=== PATIENT | male | born 1945 | race Caucasian/White ===

== ENCOUNTER 2017-03-20 11:20 | Emergency (ER) | payer MEDICARE ==
[~2017-03-20] VITALS: Ht 167.6 cm; Wt 104.0 kg
[~2017-03-20 11:20] MED LIST: ALBU18HF INH; ASPI-13 PO; BACL20TA PO; CYCL-259 PO; HYDR-3245 PO; LISI-167 PO; METO-264 PO; NAPR500T4 PO; OXYC-302 PO; RIVA15TA PO; RIVA20TA PO; SIMV20TA3 PO; TERA5CAP3 PO
[2017-03-20 13:19] LABS: BASOPHILS # (AUTO) 0.09 x10^3/uL (0-0.1); BASOPHILS % (AUTO) 1 % (0-1); EOSINOPHILS # (AUTO) 0.25 x10^3/uL (0-0.4); EOSINOPHILS % (AUTO) 3 % (1-7); LYMPHOCYTES # (AUTO) 2.19 x10^3/uL (1-3.4); LYMPHOCYTES % (AUTO) 25 % (22-44); MD NO; MEAN CORPUSCULAR HEMOGLOBIN 30.4 pg (27.5-34.5); MEAN CORPUSCULAR HGB CONC 33.4 g/dL (33.2-36.2); MEAN CORPUSCULAR VOLUME 91.1 fL (81-97); MEAN PLATELET VOLUME 8.2 fL (7.4-10.4); MONOCYTES # (AUTO) 0.81 x10^3/uL (0.2-0.8); MONOCYTES % (AUTO) 9 % (2-9); NEUTROPHILS # (AUTO) 5.28 x10^3/uL (1.8-6.8); NEUTROPHILS % (AUTO) 61 % (42-75); PLATELET COUNT 141 x10^3/uL (130-400); RED BLOOD COUNT 4.84 x10^6/uL (4.38-5.82); RED CELL DISTRIBUTION WIDTH 14.2 % (9.4-14.8)
[2017-03-20 13:30] LABS: ANION GAP 8 mmol/L (5-15); CALCIUM 9.4 mg/dL (8.5-10.1); CHLORIDE 104 mmol/L (98-107); CREATININE 1.41 mg/dL (0.7-1.3)
[2017-03-20 13:34] LABS: TROPONIN I < 0.015 ng/mL (0.000-0.045)
[2017-03-20 16:04] VITALS: BP 127/66
== END 2017-03-20 16:35 | disposition home or self-care (01) ==
LOC: ED 16:28
DX: I82.412 Acute embolism and thrombosis of left femoral vein (principal); I10 Essential (primary) hypertension; Z98.890 Other specified postprocedural states; Z86.718 Personal history of other venous thrombosis and embolism
CPT/HCPCS: 36415; 71045; 80048; 82040; 84484; 85025; 93005; 99285

== ENCOUNTER 2018-09-25 07:29 | Outpatient (CLI) | payer MEDICARE ==
[~2018-09-25 07:29] MED LIST changes: +NAPR-685 PO; -NAPR500T4 PO
[2018-09-25] MEDS ORDERED: ROSU40TA PO (08:16)
[2018-09-25] MEDS ORDERED: LOSA50TA14 PO (08:16)
[2018-09-25] MEDS ORDERED: UBID200C35 PO (08:16)
[2018-09-25] MEDS ORDERED: RIVA20TA PO (08:16)
[2018-09-25] MEDS ORDERED: LINA5TAB PO (08:16)
[2018-09-25] MEDS ORDERED: FLUT1AER INH (08:41)
[2018-09-25] MEDS ORDERED: FLUT12AE INH (08:41)
[2018-09-25 08:57] LABS: BASOPHILS # (AUTO) 0.02 x10^3/uL (0-0.1); BASOPHILS % (AUTO) 0 % (0-1); EOSINOPHILS # (AUTO) 0.07 x10^3/uL (0-0.4); EOSINOPHILS % (AUTO) 1 % (1-7); LYMPHOCYTES # (AUTO) 1.47 x10^3/uL (1-3.4); LYMPHOCYTES % (AUTO) 21 % (22-44); MD NO; MEAN CORPUSCULAR HEMOGLOBIN 31.6 pg (27.5-34.5); MEAN CORPUSCULAR HGB CONC 33.1 g/dL (33.2-36.2); MEAN CORPUSCULAR VOLUME 95.3 fL (81-97); MEAN PLATELET VOLUME 7.9 fL (7.4-10.4); MONOCYTES # (AUTO) 0.76 x10^3/uL (0.2-0.8); MONOCYTES % (AUTO) 11 % (2-9); NEUTROPHILS # (AUTO) 4.68 x10^3/uL (1.8-6.8); NEUTROPHILS % (AUTO) 67 % (42-75); PLATELET COUNT 151 x10^3/uL (130-400); RED BLOOD COUNT 4.46 x10^6/uL (4.38-5.82); RED CELL DISTRIBUTION WIDTH 15.7 % (9.4-14.8)
[2018-09-25 09:03] LABS: INTERNATIONAL NORMALIZED RATIO 1.28 (0.93-1.1); PROTHROMBIN TIME 13.3 Seconds (9.6-11.5)
[2018-09-25 09:05] LABS: ALANINE AMINOTRANSFERASE 32 U/L (12-78); ALBUMIN 3.9 g/dL (3.4-5.0); ANION GAP 4 mmol/L (5-15); CALCIUM 9.1 mg/dL (8.5-10.1); CHLORIDE 110 mmol/L (98-107); CREATININE 1.23 mg/dL (0.7-1.3)
[2018-09-25 09:07] LABS: ALKALINE PHOSPHATASE 40 U/L (45-117); TOTAL PROTEIN 7.4 g/dL (6.4-8.2)
[2018-09-25 09:07] LABS: MICROSCOPIC AUTO
[2018-09-25 09:13] LABS: CULTURE INDICATED? YES
== END 2018-09-25 23:59 | disposition home or self-care (01) ==
LOC: STAR 07:29
PROVIDERS: ATTEND Orthopaedic Surgery
DX: Z01.818 Encounter for other preprocedural examination (principal); M48.061 Spinal stenosis, lumbar region without neurogenic claudication; R79.1 Abnormal coagulation profile; R82.998 Other abnormal findings in urine
CPT/HCPCS: 36415; 71046; 80053; 81001; 85025; 85610; 85730; 87086; 87186; 93005

== ENCOUNTER 2019-01-01 05:41 | Inpatient (IN) | payer MEDICARE ==
[~2019-01-01] VITALS: Ht 167.6 cm; Wt 111.0 kg
[~2019-01-01 05:41] MED LIST changes: +FLUT12AE INH; +FLUT1AER INH; +LINA5TAB PO; +LOSA50TA14 PO; +ROSU40TA PO; +UBID200C35 PO
[2019-01-01] MEDS ORDERED: LACTATED RINGERS 1,000 ML IV SCH (06:04)
[2019-01-01 06:32] LABS: MICROSCOPIC NOT IND
[2019-01-01 06:34] LABS: CULTURE INDICATED? NO
[2019-01-01] MEDS ORDERED: BUPIVACAINE/PF 0.25% ONE (06:41)
[2019-01-01] MEDS ORDERED: LIDOCAINE/PF 0.5% ,50ML ONE (06:41)
[2019-01-01] MEDS ORDERED: TOBRAMYCIN SULFATE 1.2 GM IMP ONE (06:42)
[2019-01-01] MEDS ORDERED: THROMBIN 5,000 UNIT VIAL TP ONE (06:42)
[2019-01-01] MEDS ORDERED: VANCOMYCIN 1,000 MG ONE ×2 (06:42→09:19)
[2019-01-01] MEDS ORDERED: EPINEPHRINE 1 MG/ML, 1ML ONE (06:42)
[2019-01-01] MEDS ORDERED: MIDAZOLAM 1 MG/ML, 2ML ONE (07:06)
[2019-01-01] MEDS ORDERED: FENTANYL PF 250 MCG/5ML ONE (07:06)
[2019-01-01] MEDS ORDERED: PROPOFOL 10 MG/ML, 20ML ONE (07:40)
[2019-01-01] MEDS ORDERED: SUCCINYLCHOLINE 20 MG/ML, 10ML ONE (07:40)
[2019-01-01] MEDS ORDERED: CEFAZOLIN 1,000 MG ONE (07:40)
[2019-01-01] MEDS ORDERED: ROCURONIUM 10 MG/ML,10ML ONE (07:40)
[2019-01-01] MEDS ORDERED: ONDANSETRON 2MG/ML, 2ML ONE (07:40)
[2019-01-01] MEDS ORDERED: ALBUTEROL SULFATE 2.5 MG/3 ML NPPB PRN (08:30)
[2019-01-01] MEDS ORDERED: KETOROLAC 30 MG/1 ML IV PRN (08:30)
[2019-01-01] MEDS ORDERED: MEPERIDINE/PF 25MG/0.5ML IVPush PRN (08:30)
[2019-01-01] MEDS ORDERED: hydrALAzine 20 MG/ML, 1ML IV PRN (08:30)
[2019-01-01] MEDS ORDERED: METOCLOPRAMIDE 5 MG/ML, 2ML IV PRN (08:30)
[2019-01-01] MEDS ORDERED: LABETALOL 5MG/ML, 20ML IV PRN (08:30)
[2019-01-01] MEDS ORDERED: ONDANSETRON 2MG/ML, 2ML IVPush PRN (08:30)
[2019-01-01] MEDS ORDERED: PROMETHAZINE 25 MG/ML, 1ML IV PRN (08:30)
[2019-01-01] MEDS ORDERED: FENTANYL PF 100 MCG/2ML IV PRN (08:30)
[2019-01-01] MEDS ORDERED: OXYcodone 5 MG/5 ML ORAL.SOL UDC PO PRN ×2 (08:30→10:30)
[2019-01-01] MEDS ORDERED: HYDROmorphone 1 MG/ML, 1ML INJ IV PRN ×2 (08:30→10:30)
[2019-01-01] MEDS ORDERED: OXYcodone 5 MG/5 ML ORAL.SOL UDC ONE (10:06)
[2019-01-01] MEDS ORDERED: FENTANYL PF 100 MCG/2ML ONE (10:06)
[2019-01-01] MEDS ORDERED: HYDROmorphone 1 MG/ML, 1ML VIAL ONE (10:06)
[2019-01-01] MEDS ORDERED: MAGNESIUM HYDROXIDE 8%, 30ML UDC PO PRN (12:00)
[2019-01-01] MEDS ORDERED: BISACODYL 10 MG SUPP PR PRN (12:00)
[2019-01-01] MEDS ORDERED: DIPHENHYDRAMINE 50 MG/ML, 1ML IVPush PRN (12:00)
[2019-01-01] MEDS ORDERED: METHOCARBAMOL 750 MG TABLET PO PRN (12:00)
[2019-01-01] MEDS ORDERED: PROMETHAZINE 25 MG/ML, 1ML IM PRN (12:00)
[2019-01-01] MEDS ORDERED: morphine SULFATE 10 MG/ML, 1ML IV PRN (12:00)
[2019-01-01] MEDS ORDERED: ONDANSETRON 2MG/ML, 2ML IV PRN (12:00)
[2019-01-01] MEDS ORDERED: HYDROcodone/APAP 5/325 TABLET PO PRN (12:00)
[2019-01-01] MEDS ORDERED: BUDESONIDE 0.5 MG/2 ML INHA HHN PRN (12:30)
[2019-01-01] MEDS ORDERED: ALBUTEROL SULFATE 2.5 MG/3 ML HHN PRN (12:30)
[2019-01-01] MEDS ORDERED: METHOCARBAMOL 1,000 MG in DEXTROSE 5% 100 ML IV ONE (13:00)
[2019-01-01] MEDS: D5%-0.9% NACL+KCL 20MEQ 1,000 ML IV SCH ×2 (14:11→23:00)
[2019-01-01] MEDS: CEFAZOLIN PMX 1GM/50ML 50 ML IVPB SCH (16:01)
[2019-01-01] MEDS: HYDROcodone/APAP 10/325 MG TABLET PO PRN ×2 (16:01→20:14)
[2019-01-01] MEDS ORDERED: METF500T17 PO (17:42)
[2019-01-01 18:48] VITALS: BP 108/67
[2019-01-01] MEDS: metFORMIN 500 MG TABLET PO SCH (20:14)
[2019-01-01] MEDS: ATORVASTATIN 80 MG TABLET PO SCH (20:14)
[2019-01-01] MEDS: LOSARTAN 50MG TABLET PO SCH (20:14)
[2019-01-01] MEDS: TERAZOSIN 5MG CAPSULE PO SCH (20:15)
[2019-01-01] MEDS: METOPROLOL SUCCINATE 50 MG TAB.ER.24H PO SCH (20:15)
[2019-01-01 23:36] VITALS: BP 103/58
[2019-01-02] MEDS: HYDROcodone/APAP 10/325 MG TABLET PO PRN ×4 (00:20→17:29)
[2019-01-02] MEDS: CEFAZOLIN PMX 1GM/50ML 50 ML IVPB SCH (00:20)
[2019-01-02 03:31] VITALS: BP 106/68
[2019-01-02 05:31] LABS: BASOPHILS # (AUTO) 0.03 x10^3/uL (0-0.1); BASOPHILS % (AUTO) 0 % (0-1); EOSINOPHILS # (AUTO) 0.08 x10^3/uL (0-0.4); EOSINOPHILS % (AUTO) 1 % (1-7); LYMPHOCYTES # (AUTO) 1.22 x10^3/uL (1-3.4); LYMPHOCYTES % (AUTO) 14 % (22-44); MD NO; MEAN CORPUSCULAR HGB CONC 32.8 g/dL (33.2-36.2); MEAN CORPUSCULAR VOLUME 94.4 fL (81-97); MEAN PLATELET VOLUME 8.1 fL (7.4-10.4); MONOCYTES # (AUTO) 1.13 x10^3/uL (0.2-0.8); MONOCYTES % (AUTO) 13 % (2-9); NEUTROPHILS # (AUTO) 6.08 x10^3/uL (1.8-6.8); NEUTROPHILS % (AUTO) 71 % (42-75); PLATELET COUNT 137 x10^3/uL (130-400); RED BLOOD COUNT 3.68 x10^6/uL (4.38-5.82); RED CELL DISTRIBUTION WIDTH 15.3 % (9.4-14.8)
[2019-01-02 05:47] LABS: ANION GAP 4 mmol/L (5-15); CALCIUM 7.9 mg/dL (8.5-10.1); CHLORIDE 107 mmol/L (98-107); CREATININE 0.95 mg/dL (0.7-1.3)
[2019-01-02 07:05] VITALS: BP 101/60
[2019-01-02] MEDS: TERAZOSIN 5MG CAPSULE PO SCH ×2 (08:10→21:47)
[2019-01-02] MEDS: METOPROLOL SUCCINATE 50 MG TAB.ER.24H PO SCH ×2 (08:11→21:00)
[2019-01-02] MEDS: SENNA/DOCUSATE TABLET PO SCH (08:11)
[2019-01-02] MEDS ORDERED: LINAGLIPTIN 5 MG HOMEMEDPO SCH (09:00)
[2019-01-02] MEDS: D5%-0.9% NACL+KCL 20MEQ 1,000 ML IV SCH ×2 (09:13→17:48)
[2019-01-02 12:47] VITALS: BP 91/52
[2019-01-02] MEDS ORDERED: PIOG15TA66 PO (14:06)
[2019-01-02 18:44] VITALS: BP 91/59
[2019-01-02] MEDS: PIOGLITAZONE 15 MG TABLET HOMEMEDPO SCH (21:00)
[2019-01-02] MEDS: LOSARTAN 50MG TABLET PO SCH (21:00)
[2019-01-02 21:46] VITALS: BP 93/64
[2019-01-02] MEDS: ATORVASTATIN 80 MG TABLET PO SCH (21:47)
[2019-01-02] MEDS: metFORMIN 500 MG TABLET PO SCH (21:47)
[2019-01-03 01:28] VITALS: BP 92/54
[2019-01-03] MEDS: HYDROcodone/APAP 10/325 MG TABLET PO PRN ×3 (02:41→18:00)
[2019-01-03] MEDS: D5%-0.9% NACL+KCL 20MEQ 1,000 ML IV SCH ×2 (05:00→15:00)
[2019-01-03 05:08] LABS: BASOPHILS # (AUTO) 0.03 x10^3/uL (0-0.1); BASOPHILS % (AUTO) 0 % (0-1); EOSINOPHILS # (AUTO) 0.02 x10^3/uL (0-0.4); EOSINOPHILS % (AUTO) 0 % (1-7); LYMPHOCYTES # (AUTO) 1.51 x10^3/uL (1-3.4); LYMPHOCYTES % (AUTO) 18 % (22-44); MD NO; MEAN CORPUSCULAR HEMOGLOBIN 30.8 pg (27.5-34.5); MEAN CORPUSCULAR HGB CONC 32.5 g/dL (33.2-36.2); MEAN CORPUSCULAR VOLUME 94.7 fL (81-97); MEAN PLATELET VOLUME 8.1 fL (7.4-10.4); MONOCYTES # (AUTO) 1.02 x10^3/uL (0.2-0.8); MONOCYTES % (AUTO) 12 % (2-9); NEUTROPHILS # (AUTO) 6.02 x10^3/uL (1.8-6.8); NEUTROPHILS % (AUTO) 70 % (42-75); PLATELET COUNT 130 x10^3/uL (130-400); RED BLOOD COUNT 3.62 x10^6/uL (4.38-5.82); RED CELL DISTRIBUTION WIDTH 15.6 % (9.4-14.8)
[2019-01-03 05:17] LABS: ANION GAP 5 mmol/L (5-15); CALCIUM 7.9 mg/dL (8.5-10.1); CHLORIDE 107 mmol/L (98-107); CREATININE 1.16 mg/dL (0.7-1.3)
[2019-01-03 07:01] VITALS: BP 115/62
[2019-01-03] MEDS: TERAZOSIN 5MG CAPSULE PO SCH ×2 (09:10→20:35)
[2019-01-03] MEDS: METOPROLOL SUCCINATE 50 MG TAB.ER.24H PO SCH ×2 (09:10→20:36)
[2019-01-03] MEDS: SENNA/DOCUSATE TABLET PO SCH (09:10)
[2019-01-03 14:31] VITALS: BP 109/69
[2019-01-03 19:10] VITALS: BP 124/77
[2019-01-03] MEDS: PIOGLITAZONE 15 MG TABLET HOMEMEDPO SCH (20:34)
[2019-01-03] MEDS: ATORVASTATIN 80 MG TABLET PO SCH (20:35)
[2019-01-03] MEDS: metFORMIN 500 MG TABLET PO SCH (20:36)
[2019-01-03] MEDS: LOSARTAN 50MG TABLET PO SCH (20:36)
[2019-01-04] MEDS: D5%-0.9% NACL+KCL 20MEQ 1,000 ML IV SCH ×2 (01:00→11:00)
[2019-01-04 02:05] VITALS: BP 110/72
[2019-01-04 07:28] VITALS: BP 108/64
[2019-01-04] MEDS: SENNA/DOCUSATE TABLET PO SCH (09:14)
[2019-01-04] MEDS: HYDROcodone/APAP 10/325 MG TABLET PO PRN ×2 (09:15→13:36)
[2019-01-04] MEDS: TERAZOSIN 5MG CAPSULE PO SCH (09:15)
[2019-01-04] MEDS: METOPROLOL SUCCINATE 50 MG TAB.ER.24H PO SCH (09:16)
[2019-01-04] MEDS ORDERED: HYDR-36 PO (13:25)
== END 2019-01-04 14:03 | DRG 515 ==
LOC: OUT 05:41 → 4NE 11:26
PROVIDERS: ADMIT Orthopaedic Surgery Orthopaedic Surgery of the Spine; ATTEND Orthopaedic Surgery Orthopaedic Surgery of the Spine
PROC: 01NR0ZZ Release Sacral Nerve, Open Approach (ICD-10-PCS; 2019-01-01)
PROC: 01NB0ZZ Release Lumbar Nerve, Open Approach (ICD-10-PCS; principal; 2019-01-01 07:30)
DX: M48.07 Spinal stenosis, lumbosacral region (principal); J96.01 Acute respiratory failure with hypoxia; M54.17 Radiculopathy, lumbosacral region; J44.9 Chronic obstructive pulmonary disease, unspecified; N40.0 Benign prostatic hyperplasia without lower urinary tract symptoms; E66.01 Morbid (severe) obesity due to excess calories; E11.9 Type 2 diabetes mellitus without complications; Z86.718 Personal history of other venous thrombosis and embolism; Z79.01 Long term (current) use of anticoagulants; Z68.39 Body mass index [BMI] 39.0-39.9, adult; M48.062 Spinal stenosis, lumbar region with neurogenic claudication; M54.16 Radiculopathy, lumbar region
CPT/HCPCS: 36415; 72100; 80048; 81003; 82962; 85025; G0378; J0171; J0690; J1170; J2001; J2250; J2405; J2704; J3010; J3260; J3370; J3490; J0330; J2270; J2800; J3480; J7120

== ENCOUNTER 2019-11-07 16:26 | Emergency (ER) | payer MEDICARE ==
[~2019-11-07] VITALS: Ht 168.9 cm; Wt 118.6 kg
[~2019-11-07 16:26] MED LIST changes: +HYDR-3246 PO; +METF500T17 PO; +PIOG15TA66 PO; +SIMV20TA19 PO; -SIMV20TA3 PO
[2019-11-07 16:55] VITALS: BP 106/62
[2019-11-07 17:11] LABS: BASOPHILS # (AUTO) 0.03 x10^3/uL (0-0.1); BASOPHILS % (AUTO) 0 % (0-1); EOSINOPHILS # (AUTO) 0.11 x10^3/uL (0-0.4); EOSINOPHILS % (AUTO) 1 % (1-7); LYMPHOCYTES # (AUTO) 1.57 x10^3/uL (1-3.4); LYMPHOCYTES % (AUTO) 18 % (22-44); MD NO; MEAN CORPUSCULAR HEMOGLOBIN 29.8 pg (27.5-34.5); MEAN CORPUSCULAR HGB CONC 33.4 g/dL (33.2-36.2); MEAN CORPUSCULAR VOLUME 89.4 fL (81-97); MEAN PLATELET VOLUME 8.1 fL (7.4-10.4); MONOCYTES # (AUTO) 0.99 x10^3/uL (0.2-0.8); MONOCYTES % (AUTO) 11 % (2-9); NEUTROPHILS # (AUTO) 6.08 x10^3/uL (1.8-6.8); NEUTROPHILS % (AUTO) 69 % (42-75); PLATELET COUNT 174 x10^3/uL (130-400); RED BLOOD COUNT 5.02 x10^6/uL (4.38-5.82)
[2019-11-07 17:17] LABS: ALBUMIN 3.6 g/dL (3.4-5.0); ANION GAP 7 mmol/L (5-15); CALCIUM 10.1 mg/dL (8.5-10.1); CHLORIDE 109 mmol/L (98-107); CREATININE 1.58 mg/dL (0.7-1.3)
[2019-11-07 17:24] LABS: INTERNATIONAL NORMALIZED RATIO 1.06 (0.93-1.1); PROTHROMBIN TIME 10.9 Seconds (9.6-11.5)
--- NOTE | 2019-11-07 17:41 | NUR ---
BREAK RN: PT RESTING ON ZOIE. NADN. KESSLER.
[2019-11-07] MEDS ORDERED: RIVAROXABAN 10 MG TABLET ONE (17:59)
[2019-11-07] MEDS ORDERED: RIVAROXABAN 15 MG TABLET PO ONE (18:30)
== END 2019-11-07 18:23 | disposition home or self-care (01) ==
LOC: ED 16:59
DX: I82.431 Acute embolism and thrombosis of right popliteal vein (principal); I82.441 Acute embolism and thrombosis of right tibial vein; I10 Essential (primary) hypertension; J44.9 Chronic obstructive pulmonary disease, unspecified; Z86.718 Personal history of other venous thrombosis and embolism
CPT/HCPCS: 36415; 80048; 82040; 85025; 85610; 85730; 99284

== ENCOUNTER 2020-07-27 13:35 | Inpatient (IN) | payer MEDICARE ==
[~2020-07-27] VITALS: Ht 167.6 cm; Wt 130.7 kg
[~2020-07-27 13:35] MED LIST changes: -CYCL-259 PO; +CYCL10TA2 PO; -HYDR-3245 PO; -HYDR-3246 PO; +HYDR-3248 PO; +HYDR1TAB53 PO; -OXYC-302 PO; +OXYC1TAB14 PO
--- NOTE | 2020-07-27 14:07 | NUR ---
PT PRESENTS TO ED WITH C/O SOB X 1 MONTH, DENIES CP. HOME O2 TANK EMPTY, PLACED ON 6L NC, O2 SAT NOW 96%. PT ALSO STATES BILATERAL LE SWELLING STARTED 2 MONTHS AGO, 3+ PITTING EDEMA NOTED BILATERALLY TO LE. PT A&O, RESPS EVEN AND SLIGHTLY LABORED, VSS, NADN. CALL LIGHT IN REACH, AT BEDSIDE.
--- NOTE | 2020-07-27 14:16 | NUR ---
ERMD LAW AT BEDSIDE FOR EVAL
[2020-07-27] MEDS ORDERED: methylPREDNISolone SOD SUCC 125 MG/2 ML ONE (14:22)
[2020-07-27] MEDS ORDERED: ALBUTEROL/IPRATROPIUM 2.5MG/0.5MG, 3 ML ONE ×2 (14:23→16:40)
[2020-07-27] MEDS: ALBUTEROL/IPRATROPIUM 2.5MG/0.5MG, 3 ML NPPB SCH ×2 (14:28→16:43)
[2020-07-27] MEDS ORDERED: methylPREDNISolone SOD SUCC 125 MG/2 ML IV ONE (14:30)
[2020-07-27 14:37] LABS: BASOPHILS % (AUTO) 1 % (0-1); EOSINOPHILS % (AUTO) 2 % (1-7); LYMPHOCYTES % (AUTO) 13 % (22-44); MEAN CORPUSCULAR HEMOGLOBIN 30.4 pg (27.5-34.5); MEAN CORPUSCULAR HGB CONC 32.6 g/dL (33.2-36.2); MEAN PLATELET VOLUME 8.9 fL (7.4-10.4); MONOCYTES % (AUTO) 12 % (2-9); NEUTROPHILS % (AUTO) 73 % (42-75); PLATELET COUNT 111 x10^3/uL (130-400); RED CELL DISTRIBUTION WIDTH 17.2 % (9.4-14.8)
[2020-07-27 14:38] LABS: MD NO
[2020-07-27 14:48] LABS: ALBUMIN 3.3 g/dL (3.4-5.0); ANION GAP 2 mmol/L (5-15); CHLORIDE 106 mmol/L (98-107)
[2020-07-27] MEDS ORDERED: GABA300C PO (14:50)
[2020-07-27] MEDS ORDERED: FINA5TAB4 PO (14:52)
[2020-07-27 14:53] LABS: ALANINE AMINOTRANSFERASE 31 U/L (12-78); ALKALINE PHOSPHATASE 51 U/L (45-117); BILIRUBIN,TOTAL 0.9 mg/dL (0.2-1.0); CREATININE 1.12 mg/dL (0.7-1.3); TOTAL PROTEIN 6.2 g/dL (6.4-8.2)
[2020-07-27] MEDS ORDERED: EZET10TA70 PO (14:53)
--- NOTE | 2020-07-27 15:09 | NUR ---
PT A&O, BREATHING TX IN PROCESS. PIV PLACED, NADN.
[2020-07-27] MEDS ORDERED: FUROSEMIDE 40 MG/4 ML IV ONE (16:00)
--- NOTE | 2020-07-27 16:31 | NUR ---
HOSPITALIST AT BEDSIDE TO DISCUSS POC
[2020-07-27] MEDS ORDERED: FUROSEMIDE 40 MG/4 ML ONE (16:40)
--- NOTE | 2020-07-27 16:59 | NUR ---
PT A&O, RESPS EVEN AND UNLABORED, 2ND BREATHING TX ADMINISTERED. VSS, NADN.
[2020-07-27] MEDS ORDERED: FLUTICASONE/VILANTEROL 100-25MCG/INH INH SCH (17:00)
[2020-07-27] MEDS ORDERED: SENNA/DOCUSATE TABLET PO PRN (17:00)
[2020-07-27] MEDS ORDERED: ONDANSETRON ODT 4 MG PO PRN (17:00)
[2020-07-27] MEDS ORDERED: FUROSEMIDE 20 MG/2 ML IV SCH (17:00)
[2020-07-27] MEDS ORDERED: POLYETHYLENE GLYCOL 17 GM PACKET PO PRN (17:00)
[2020-07-27] MEDS ORDERED: ONDANSETRON 2MG/ML, 2ML IVPush PRN (17:00)
[2020-07-27] MEDS ORDERED: TEMPLATE NON-FORMULARY MED. (Fluticasone Propionate (Flovent Hfa 110 Mcg/Inh) 1 PUFF) INH SCH (17:00)
--- NOTE | 2020-07-27 17:09 | NUR ---
RT AT BEDSIDE
--- NOTE | 2020-07-27 17:12 | NUR ---
REPORT GIVEN TO RECEIVING JOSÉ MANUEL GOULD
[2020-07-27] MEDS ORDERED: METOPROLOL TARTRATE 50 MG TAB ONE (18:09)
[2020-07-27] MEDS: METOPROLOL TARTRATE 50 MG TAB PO SCH (18:11)
[2020-07-27 19:03] VITALS: BP 105/68
[2020-07-27] MEDS: TERAZOSIN 5MG CAPSULE PO SCH (21:21)
[2020-07-27] MEDS: LOSARTAN 50MG TABLET PO SCH (21:21)
[2020-07-27] MEDS: GABAPENTIN 300 MG CAPSULE PO SCH (21:21)
[2020-07-27] MEDS: INSULIN LISPRO 100 UNITS/ML, PEN SQ-INSULIN SCH (21:28)
[2020-07-27] MEDS: ATORVASTATIN 80 MG TABLET PO SCH (21:59)
[2020-07-27] MEDS: ALBUTEROL SULFATE 2.5 MG/3 ML NPPB SCH (22:10)
[2020-07-27] MEDS: BUDESONIDE 0.5 MG/2 ML INHA INH SCH (22:10)
[2020-07-27 22:57] LABS: AMPHETAMINE SCREEN, URINE Negative (Negative); BARBITURATE SCREEN, URINE Negative (Negative); BENZODIAZEPINE SCREEN, URINE Negative (Negative); CANNABINOID SCREEN, URINE Negative (Negative); COCAINE SCREEN, URINE Negative (Negative); METHADONE SCREEN, URINE Negative (Negative); OPIATE SCREEN, URINE Negative (Negative)
[2020-07-28 01:52] VITALS: BP 125/72
[2020-07-28 05:04] VITALS: BP 110/71
[2020-07-28] MEDS: METOPROLOL TARTRATE 50 MG TAB PO SCH ×2 (05:07→18:29)
[2020-07-28 05:33] LABS: BASOPHILS % (AUTO) 0 % (0-1); EOSINOPHILS % (AUTO) 0 % (1-7); LYMPHOCYTES % (AUTO) 8 % (22-44); MEAN CORPUSCULAR HGB CONC 31.7 g/dL (33.2-36.2); MEAN PLATELET VOLUME 8.7 fL (7.4-10.4); MONOCYTES % (AUTO) 5 % (2-9); NEUTROPHILS % (AUTO) 87 % (42-75); PLATELET COUNT 126 x10^3/uL (130-400); RED BLOOD COUNT 4.06 x10^6/uL (4.38-5.82); RED CELL DISTRIBUTION WIDTH 16.7 % (9.4-14.8)
[2020-07-28 05:37] LABS: MD NO
[2020-07-28 05:40] LABS: CHLORIDE 103 mmol/L (98-107)
[2020-07-28 05:57] LABS: ALANINE AMINOTRANSFERASE 27 U/L (12-78); ALBUMIN 3.6 g/dL (3.4-5.0); ALKALINE PHOSPHATASE 55 U/L (45-117); ANION GAP 1 mmol/L (5-15); BILIRUBIN,TOTAL 0.6 mg/dL (0.2-1.0); CALCIUM 9.8 mg/dL (8.5-10.1); CHOL/HDL RATIO 3.5; CHOLESTEROL, TOTAL 168 mg/dL (140-239); CREATININE 1.24 mg/dL (0.7-1.3); HDL CHOL % 29 % (26-37); HDL CHOLESTEROL (DIRECT) 48 mg/dL (40-60); LDL CHOLESTEROL,CALCULATED 105 mg/dL (54-169); LDL/HDL RATIO 2.2 (0.5-3.0); TRIGLYCERIDES 77 mg/dL (50-200); VLDL CHOLESTEROL 15 mg/dL (0-25)
[2020-07-28 06:52] VITALS: BP 120/78
[2020-07-28] MEDS: ALBUTEROL SULFATE 2.5 MG/3 ML NPPB SCH ×2 (07:10→20:24)
[2020-07-28] MEDS: BUDESONIDE 0.5 MG/2 ML INHA INH SCH ×2 (07:10→20:24)
[2020-07-28] MEDS: FUROSEMIDE 20 MG/2 ML IV SCH ×2 (08:20→18:29)
[2020-07-28] MEDS: ACETAMINOPHEN 500 MG TABLET PO PRN (08:21)
[2020-07-28] MEDS: RIVAROXABAN 20 MG TABLET PO SCH (08:21)
[2020-07-28] MEDS: INSULIN LISPRO 100 UNITS/ML, PEN SQ-INSULIN SCH ×4 (08:21→21:00)
[2020-07-28] MEDS: EZETIMIBE 10 MG TABLET PO SCH (08:21)
[2020-07-28] MEDS: FINASTERIDE 5 MG TABLET PO SCH (08:22)
[2020-07-28] MEDS: TERAZOSIN 5MG CAPSULE PO SCH ×2 (08:22→21:20)
[2020-07-28] MEDS ORDERED: METOPROLOL SUCCINATE 50 MG TAB.ER.24H PO SCH (09:00)
[2020-07-28 14:21] VITALS: BP 118/75
[2020-07-28] MEDS: LOSARTAN 50MG TABLET PO SCH (21:19)
[2020-07-28] MEDS: ATORVASTATIN 80 MG TABLET PO SCH (21:19)
[2020-07-28] MEDS: GABAPENTIN 300 MG CAPSULE PO SCH (21:20)
[2020-07-29 04:35] LABS: BASOPHILS % (AUTO) 0 % (0-1); EOSINOPHILS % (AUTO) 2 % (1-7); LYMPHOCYTES % (AUTO) 20 % (22-44); MEAN CORPUSCULAR HEMOGLOBIN 30.4 pg (27.5-34.5); MEAN CORPUSCULAR HGB CONC 32.4 g/dL (33.2-36.2); MEAN PLATELET VOLUME 8.3 fL (7.4-10.4); MONOCYTES % (AUTO) 13 % (2-9); NEUTROPHILS % (AUTO) 65 % (42-75); PLATELET COUNT 103 x10^3/uL (130-400); RED BLOOD COUNT 4.02 x10^6/uL (4.38-5.82); RED CELL DISTRIBUTION WIDTH 17.1 % (9.4-14.8)
[2020-07-29 04:37] LABS: MD NO
[2020-07-29 04:45] LABS: CALCIUM 8.9 mg/dL (8.5-10.1)
[2020-07-29 04:46] LABS: CREATININE 1.12 mg/dL (0.7-1.3)
[2020-07-29 04:58] LABS: CHLORIDE 104 mmol/L (98-107)
[2020-07-29 05:02] LABS: ANION GAP 1 mmol/L (5-15)
[2020-07-29] MEDS: METOPROLOL TARTRATE 50 MG TAB PO SCH ×2 (06:13→17:47)
[2020-07-29] MEDS: INSULIN LISPRO 100 UNITS/ML, PEN SQ-INSULIN SCH ×4 (06:16→21:00)
[2020-07-29] MEDS: BUDESONIDE 0.5 MG/2 ML INHA INH SCH ×2 (06:44→19:47)
[2020-07-29] MEDS: ALBUTEROL SULFATE 2.5 MG/3 ML NPPB SCH ×2 (06:44→19:47)
[2020-07-29 07:44] LABS: FIO2 35 %
[2020-07-29 07:45] LABS: O2 FLOW 50 L/min
[2020-07-29] MEDS: FUROSEMIDE 20 MG/2 ML IV SCH ×2 (08:26→16:48)
[2020-07-29] MEDS: FINASTERIDE 5 MG TABLET PO SCH (08:37)
[2020-07-29] MEDS: METOLAZONE 2.5 MG TABLET PO SCH ×2 (08:37→21:43)
[2020-07-29] MEDS: RIVAROXABAN 20 MG TABLET PO SCH (08:38)
[2020-07-29] MEDS: EZETIMIBE 10 MG TABLET PO SCH (08:38)
[2020-07-29] MEDS: TERAZOSIN 5MG CAPSULE PO SCH ×2 (08:38→21:42)
[2020-07-29 12:29] VITALS: BP 124/88
[2020-07-29] MEDS: ACETAMINOPHEN 500 MG TABLET PO PRN (16:50)
[2020-07-29 20:29] VITALS: BP 109/69
[2020-07-29] MEDS: GABAPENTIN 300 MG CAPSULE PO SCH (21:42)
[2020-07-29] MEDS: LOSARTAN 50MG TABLET PO SCH (21:42)
[2020-07-29] MEDS: ATORVASTATIN 80 MG TABLET PO SCH (21:43)
[2020-07-30 01:26] VITALS: BP 111/68
[2020-07-30 05:30] LABS: BASOPHILS % (AUTO) 0 % (0-1); EOSINOPHILS % (AUTO) 4 % (1-7); LYMPHOCYTES % (AUTO) 17 % (22-44); MEAN CORPUSCULAR HEMOGLOBIN 30.4 pg (27.5-34.5); MEAN CORPUSCULAR HGB CONC 32.5 g/dL (33.2-36.2); MEAN PLATELET VOLUME 8.8 fL (7.4-10.4); MONOCYTES % (AUTO) 13 % (2-9); NEUTROPHILS % (AUTO) 66 % (42-75); PLATELET COUNT 106 x10^3/uL (130-400); RED BLOOD COUNT 4.27 x10^6/uL (4.38-5.82); RED CELL DISTRIBUTION WIDTH 16.8 % (9.4-14.8)
[2020-07-30 05:36] LABS: MD NO
[2020-07-30 05:42] LABS: ANION GAP 0 mmol/L (5-15); CALCIUM 8.8 mg/dL (8.5-10.1); CHLORIDE 94 mmol/L (98-107); CREATININE 1.19 mg/dL (0.7-1.3)
[2020-07-30] MEDS: FUROSEMIDE 20 MG/2 ML IV SCH ×2 (06:16→17:04)
[2020-07-30] MEDS: METOPROLOL TARTRATE 50 MG TAB PO SCH ×2 (06:16→17:03)
[2020-07-30] MEDS: INSULIN LISPRO 100 UNITS/ML, PEN SQ-INSULIN SCH ×4 (07:00→20:07)
[2020-07-30] MEDS ORDERED: POTASSIUM CHLORIDE 20 MEQ TAB.ER.PRT PO ONE (07:00)
[2020-07-30] MEDS: ALBUTEROL SULFATE 2.5 MG/3 ML NPPB SCH ×2 (07:08→21:00)
[2020-07-30] MEDS: BUDESONIDE 0.5 MG/2 ML INHA INH SCH ×2 (07:08→21:00)
[2020-07-30 07:55] VITALS: BP 123/73
[2020-07-30] MEDS: RIVAROXABAN 20 MG TABLET PO SCH (07:56)
[2020-07-30] MEDS: EZETIMIBE 10 MG TABLET PO SCH (07:56)
[2020-07-30] MEDS: METOLAZONE 2.5 MG TABLET PO SCH ×2 (07:57→20:06)
[2020-07-30] MEDS: FINASTERIDE 5 MG TABLET PO SCH (07:57)
[2020-07-30] MEDS: TERAZOSIN 5MG CAPSULE PO SCH ×2 (07:57→20:06)
[2020-07-30 08:13] VITALS: BP 105/67
[2020-07-30] MEDS: DIGOXIN 0.125 MG TABLET PO SCH (10:34)
[2020-07-30 13:34] VITALS: BP 105/67
[2020-07-30 19:07] VITALS: BP 102/71
[2020-07-30 20:02] VITALS: BP 109/71
[2020-07-30] MEDS: ATORVASTATIN 80 MG TABLET PO SCH (20:06)
[2020-07-30] MEDS: GABAPENTIN 300 MG CAPSULE PO SCH (20:07)
[2020-07-30] MEDS: LOSARTAN 50MG TABLET PO SCH (20:07)
[2020-07-31 01:20] VITALS: BP 113/76
[2020-07-31 05:19] LABS: CHLORIDE 88 mmol/L (98-107)
[2020-07-31 05:22] LABS: ANION GAP 3 mmol/L (5-15); CALCIUM 9.6 mg/dL (8.5-10.1); CREATININE 1.11 mg/dL (0.7-1.3)
[2020-07-31] MEDS: METOPROLOL TARTRATE 50 MG TAB PO SCH ×2 (06:20→17:56)
[2020-07-31] MEDS: INSULIN LISPRO 100 UNITS/ML, PEN SQ-INSULIN SCH ×4 (07:00→20:52)
[2020-07-31] MEDS: TERAZOSIN 5MG CAPSULE PO SCH ×2 (08:04→20:42)
[2020-07-31] MEDS: POTASSIUM CHLORIDE 20 MEQ TAB.ER.PRT PO SCH ×2 (08:04→17:56)
[2020-07-31] MEDS: FUROSEMIDE 40 MG TABLET PO SCH (08:04)
[2020-07-31] MEDS: DIGOXIN 0.125 MG TABLET PO SCH (08:04)
[2020-07-31] MEDS: RIVAROXABAN 20 MG TABLET PO SCH (08:04)
[2020-07-31] MEDS: EZETIMIBE 10 MG TABLET PO SCH (08:05)
[2020-07-31] MEDS: FINASTERIDE 5 MG TABLET PO SCH (08:05)
[2020-07-31] MEDS: METOLAZONE 2.5 MG TABLET PO SCH ×2 (08:05→20:42)
[2020-07-31 08:35] VITALS: BP 99/51
[2020-07-31] MEDS: ALBUTEROL SULFATE 2.5 MG/3 ML NPPB SCH ×2 (09:28→20:57)
[2020-07-31] MEDS: BUDESONIDE 0.5 MG/2 ML INHA INH SCH ×2 (09:28→20:57)
[2020-07-31 12:49] VITALS: BP 158/78
[2020-07-31] MEDS: GABAPENTIN 300 MG CAPSULE PO SCH (20:42)
[2020-07-31] MEDS: ATORVASTATIN 80 MG TABLET PO SCH (20:42)
[2020-07-31] MEDS: LOSARTAN 50MG TABLET PO SCH (20:42)
[2020-07-31 20:52] VITALS: BP 121/76
[2020-08-01 01:13] VITALS: BP 115/73
[2020-08-01 05:33] LABS: ANION GAP 1 mmol/L (5-15); CALCIUM 9.7 mg/dL (8.5-10.1); CHLORIDE 90 mmol/L (98-107)
[2020-08-01 05:34] LABS: CREATININE 1.14 mg/dL (0.7-1.3)
[2020-08-01] MEDS: METOPROLOL TARTRATE 50 MG TAB PO SCH ×2 (06:05→17:30)
[2020-08-01] MEDS: INSULIN LISPRO 100 UNITS/ML, PEN SQ-INSULIN SCH ×4 (07:00→22:15)
[2020-08-01] MEDS: ALBUTEROL SULFATE 2.5 MG/3 ML NPPB SCH ×2 (07:20→20:15)
[2020-08-01] MEDS: BUDESONIDE 0.5 MG/2 ML INHA INH SCH ×2 (07:20→20:15)
[2020-08-01 08:00] VITALS: BP 101/70
[2020-08-01] MEDS: FINASTERIDE 5 MG TABLET PO SCH (08:30)
[2020-08-01] MEDS: FUROSEMIDE 40 MG TABLET PO SCH (08:30)
[2020-08-01] MEDS: DIGOXIN 0.125 MG TABLET PO SCH (08:30)
[2020-08-01] MEDS: METOLAZONE 2.5 MG TABLET PO SCH (08:30)
[2020-08-01] MEDS: POTASSIUM CHLORIDE 20 MEQ TAB.ER.PRT PO SCH ×2 (08:30→17:30)
[2020-08-01] MEDS: EZETIMIBE 10 MG TABLET PO SCH (08:31)
[2020-08-01] MEDS: RIVAROXABAN 20 MG TABLET PO SCH (08:31)
[2020-08-01] MEDS: TERAZOSIN 5MG CAPSULE PO SCH ×2 (08:31→20:16)
[2020-08-01 12:27] VITALS: BP 99/67
[2020-08-01 20:00] VITALS: BP 92/64
[2020-08-01] MEDS: GABAPENTIN 300 MG CAPSULE PO SCH (20:16)
[2020-08-01] MEDS: LOSARTAN 50MG TABLET PO SCH (20:17)
[2020-08-01] MEDS: ATORVASTATIN 80 MG TABLET PO SCH (20:17)
[2020-08-02 03:08] VITALS: BP 97/65
[2020-08-02 05:06] LABS: ANION GAP 1 mmol/L (5-15); CALCIUM 9.4 mg/dL (8.5-10.1); CHLORIDE 91 mmol/L (98-107); CREATININE 1.32 mg/dL (0.7-1.3)
[2020-08-02] MEDS: METOPROLOL TARTRATE 50 MG TAB PO SCH ×2 (06:07→17:07)
[2020-08-02 07:30] VITALS: BP 93/62
[2020-08-02 08:22] VITALS: BP 98/63
[2020-08-02] MEDS: INSULIN LISPRO 100 UNITS/ML, PEN SQ-INSULIN SCH ×4 (08:23→20:14)
[2020-08-02] MEDS: TERAZOSIN 5MG CAPSULE PO SCH ×2 (08:24→20:12)
[2020-08-02] MEDS: RIVAROXABAN 20 MG TABLET PO SCH (08:24)
[2020-08-02] MEDS: METOLAZONE 2.5 MG TABLET PO SCH (08:24)
[2020-08-02] MEDS: FUROSEMIDE 40 MG TABLET PO SCH (08:24)
[2020-08-02] MEDS: EZETIMIBE 10 MG TABLET PO SCH (08:24)
[2020-08-02] MEDS: FINASTERIDE 5 MG TABLET PO SCH (08:25)
[2020-08-02] MEDS: DIGOXIN 0.125 MG TABLET PO SCH (08:25)
[2020-08-02] MEDS: BUDESONIDE 0.5 MG/2 ML INHA INH SCH ×2 (09:45→19:40)
[2020-08-02] MEDS: ALBUTEROL SULFATE 2.5 MG/3 ML NPPB SCH ×2 (09:45→19:40)
[2020-08-02 13:15] VITALS: BP 117/82
[2020-08-02] MEDS: GABAPENTIN 300 MG CAPSULE PO SCH (20:12)
[2020-08-02] MEDS: ATORVASTATIN 80 MG TABLET PO SCH (20:12)
[2020-08-02] MEDS: LOSARTAN 50MG TABLET PO SCH (20:13)
[2020-08-02 20:20] VITALS: BP 100/70
[2020-08-03 01:09] VITALS: BP 96/64
[2020-08-03 05:15] VITALS: BP 99/64
[2020-08-03] MEDS: METOPROLOL TARTRATE 50 MG TAB PO SCH ×2 (05:16→17:15)
[2020-08-03] MEDS: ALBUTEROL SULFATE 2.5 MG/3 ML NPPB SCH ×2 (06:37→19:40)
[2020-08-03] MEDS: BUDESONIDE 0.5 MG/2 ML INHA INH SCH ×2 (06:37→19:40)
[2020-08-03] MEDS: FUROSEMIDE 40 MG TABLET PO SCH (09:50)
[2020-08-03] MEDS: RIVAROXABAN 20 MG TABLET PO SCH (09:50)
[2020-08-03] MEDS: DIGOXIN 0.125 MG TABLET PO SCH (09:50)
[2020-08-03] MEDS: EZETIMIBE 10 MG TABLET PO SCH (09:50)
[2020-08-03] MEDS: METOLAZONE 2.5 MG TABLET PO SCH (09:50)
[2020-08-03] MEDS: TERAZOSIN 5MG CAPSULE PO SCH ×2 (09:50→20:47)
[2020-08-03 09:51] VITALS: BP 89/61
[2020-08-03] MEDS: INSULIN LISPRO 100 UNITS/ML, PEN SQ-INSULIN SCH ×4 (09:51→20:47)
[2020-08-03] MEDS: FINASTERIDE 5 MG TABLET PO SCH (09:51)
[2020-08-03 12:58] VITALS: BP 97/65
[2020-08-03 18:16] VITALS: BP 93/63
[2020-08-03] MEDS: GABAPENTIN 300 MG CAPSULE PO SCH (20:46)
[2020-08-03] MEDS: LOSARTAN 50MG TABLET PO SCH (20:47)
[2020-08-03] MEDS: ATORVASTATIN 80 MG TABLET PO SCH (20:47)
[2020-08-04 00:45] VITALS: BP 93/63
[2020-08-04] MEDS: ACETAMINOPHEN 500 MG TABLET PO PRN ×2 (00:55→16:17)
[2020-08-04] MEDS: METOPROLOL TARTRATE 50 MG TAB PO SCH ×2 (05:37→18:24)
[2020-08-04 06:53] VITALS: BP 93/63
[2020-08-04] MEDS: ALBUTEROL SULFATE 2.5 MG/3 ML NPPB SCH (07:18)
[2020-08-04] MEDS: BUDESONIDE 0.5 MG/2 ML INHA INH SCH (07:19)
[2020-08-04] MEDS: INSULIN LISPRO 100 UNITS/ML, PEN SQ-INSULIN SCH ×3 (08:26→17:26)
[2020-08-04 08:43] VITALS: BP 91/65
[2020-08-04] MEDS ORDERED: LOSA50TA14 PO (09:42)
[2020-08-04 10:48] VITALS: BP 97/64
[2020-08-04] MEDS: FUROSEMIDE 40 MG TABLET PO SCH (10:52)
[2020-08-04] MEDS: DIGOXIN 0.125 MG TABLET PO SCH (10:52)
[2020-08-04] MEDS: EZETIMIBE 10 MG TABLET PO SCH (10:52)
[2020-08-04] MEDS: FINASTERIDE 5 MG TABLET PO SCH (10:52)
[2020-08-04] MEDS: RIVAROXABAN 20 MG TABLET PO SCH (10:53)
[2020-08-04 12:50] VITALS: BP 108/64
[2020-08-04] MEDS: METOLAZONE 2.5 MG TABLET PO SCH (12:51)
[2020-08-04] MEDS: TERAZOSIN 5MG CAPSULE PO SCH (12:51)
== END 2020-08-04 19:58 | disposition home or self-care (01) | DRG 291 ==
LOC: ED 15:45 → EDIP 15:58 → 5SO 17:16 → CCU 07-28 18:22 → 5SO 07-29 12:20
PROVIDERS: ADMIT Hospitalist; ATTEND Family Medicine
PROC: 5A09357 Assistance with Respiratory Ventilation, Less than 24 Consecutive Hours, Continuous Positive Airway Pressure (ICD-10-PCS; principal; 2020-07-28)
PROC: 5A09357 Assistance with Respiratory Ventilation, Less than 24 Consecutive Hours, Continuous Positive Airway Pressure (ICD-10-PCS; 2020-07-29)
PROC: 5A0945A Assistance with Respiratory Ventilation, 24-96 Consecutive Hours, High Flow/Velocity Cannula (ICD-10-PCS; 2020-07-31)
DX: I11.0 Hypertensive heart disease with heart failure (principal); J96.21 Acute and chronic respiratory failure with hypoxia; J96.22 Acute and chronic respiratory failure with hypercapnia; E87.2 Acidosis; D68.69 Other thrombophilia; E87.4 Mixed disorder of acid-base balance; Z68.42 Body mass index [BMI] 45.0-49.9, adult; I82.431 Acute embolism and thrombosis of right popliteal vein; I48.91 Unspecified atrial fibrillation; I50.33 Acute on chronic diastolic (congestive) heart failure; D64.9 Anemia, unspecified; D69.6 Thrombocytopenia, unspecified; E78.5 Hyperlipidemia, unspecified; J44.9 Chronic obstructive pulmonary disease, unspecified; N40.0 Benign prostatic hyperplasia without lower urinary tract symptoms; G89.29 Other chronic pain; R53.81 Other malaise; E11.42 Type 2 diabetes mellitus with diabetic polyneuropathy; E66.01 Morbid (severe) obesity due to excess calories; Z79.01 Long term (current) use of anticoagulants; Z86.711 Personal history of pulmonary embolism; Z86.718 Personal history of other venous thrombosis and embolism; Z87.891 Personal history of nicotine dependence; Z90.49 Acquired absence of other specified parts of digestive tract; Z86.19 Personal history of other infectious and parasitic diseases
CPT/HCPCS: 36415; 36600; 71045; 76705; 80048; 80053; 80061; 80307; 82436; 82803; 82805; 82962; 83036; 83880; 84145; 84443; 85025; 87040; 87081; 93005; 93970; 94640; 94660; 94664; 96374; 96375; C8929; G0378; J1940; J7613; J7626; Q9957; 92523-GN; J1815; J2930